=== PATIENT | female | born 1980 | race Caucasian/White ===

== ENCOUNTER 2023-05-13 12:57 | Emergency (ER) | payer MEDICARE, OTHER, SELFPAY ==
[2023-05-13] VITALS (8 sets, daily range): BP systolic 123–171; BP diastolic 81–113; BMI 41.5
[2023-05-13 13:29] LABS: % Basophils 0.3 % (0-2); % Eosinophils 0.7 % (0-6); % Immature Granulocytes 0.5 % (0-0.5); % Lymphocytes 23.9 % (20.5-51.1); % Monocytes 5.4 % (1.7-9.3); % Neutrophils 69.2 % (42.2-75.2); Absolute Eosinophils 0.1 10^3/uL (0-0.7); Absolute Immature Granulocytes 0.1 10^3/uL (0-0.05); Absolute Lymphocytes 2.5 10^3/uL (1.2-3.4); Absolute Monocytes 0.6 10^3/uL (0.1-0.6); Absolute Neutrophils 7.2 10^3/uL (1.4-6.5); Hematocrit 37.5 % (37.0-47.0); Hemoglobin 12.1 g/dL (12.0-16.0); Mean Corp Hgb Conc. 32.3 g/dL (33.0-37.0); Mean Corpuscular Hgb 27.9 pg (27.0-31.0); Mean Corpuscular Volume 86.4 fL (81.0-99.0); Mean Platelet Volume 9.7 fL (7.4-10.4); Nucleated Red Blood Cells % 0 %; Platelet Count 326 10^3/uL (130-400); Red Blood Cell Count 4.34 10^6/uL (4.20-5.40); Red Cell Dist. Width 14.4 % (11.5-14.5); White Blood Cell Count 10.4 10^3/uL (4.8-10.8)
[2023-05-13 13:36] LABS: HCG, Serum Qualitative Screen Negative
[2023-05-13 13:41] LABS: ALT (SGPT) 26 U/L (0-35); AST (SGOT) 52 U/L (14-36); Albumin 3.3 g/dl (3.5-5.0); Alkaline Phosphatase 82 U/L (38-126); Blood Urea Nitrogen 12 mg/dl (7-17); Calcium 9.3 mg/dl (8.4-10.2); Carbon Dioxide 23 mmol/L (22-30); Chloride 104 mmol/L (98-107); Estimated Creatinine Clearance > 125 ml/min; Glucose 138 mg/dl (70-99); Sodium 137 mmol/L (135-145); Total Bilirubin 0.5 mg/dl (0.2-1.3); Total Protein 6.3 g/dl (6.3-8.2); eGFR > 60.00
[2023-05-13 14:03] LABS: Lipase 182 U/L (23-300)
--- NOTE | 2023-05-13 14:16 | ED.GENMED ---
Addendum entered and electronically signed by Beth Barrientos PA-C 05/15/23 07:37:
urine culture prelim pos e coli
i spoke with RN at her [facility] where she is and faxed report to [phone]
Original Note:
History of Present Illness
General
Chief Complaint: Abdominal Pain
Source: patient
Exam Limitations: none
Time Seen by Provider: 05/13/23 13:13
Nursing documentation reviewed up to this point in time: agreed with
Travel History
Have you had any contact with someone who has COVID-19?: No
Do you have any symptoms of coronavirus? Fever > 100 degrees, chills, cough, shortness of breath, sore throat, loss of taste or smell, muscle aches, or headache?: No
History of Present Illness
History of Present Illness:
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
presents to the emergency department from her [facility] ([facility]) for evaluation of abdominal pain. Patient reports onset of symptoms 2 weeks ago and they have been steady and progressive since. Pain primarily located in the left lower
quadrant radiates across the lower abdomen. No clear exacerbating or relieving factors noted. Associated with constipation no diarrhea. No nausea or vomiting. No fevers or chills. No new urinary symptoms. She denies any other complaints.
Review of Systems
Review of Systems
All Other Systems: ROS reviewed and negative except as documented in HPI and ROS
Constitutional: Denies fever or chills
Respiratory: Denies cough or trouble breathing
Cardiac: Denies chest pain or palpitations
ABD/GI: Reports abdominal pain and constipated; Denies nausea, vomiting or diarrhea
: Denies frequency, flank pain or bleeding
Musculoskeletal: Denies neck pain or back pain
Neurological: Denies headache
Phy Exam
Physical Exam
Physical Exam:
General: Awake, alert, oriented x3; chronically ill-appearing; no acute distress
Head: Normocephalic, atraumatic
Eyes: Conjunctiva normal, EOMI
Throat: Airway intact, handling secretions
Neck: Trachea midline, supple without meningismus
Lungs: Clear to auscultation bilaterally, no wheezing, rales, rhonchi
Heart: Tachycardia with regular rhythm, no murmurs, gallops, or rubs
Abd: Soft, non distended, tender to palpation left lower quadrant; PEG tube in place
Neuro: Cranial nerves grossly intact, speech fluid
Extremities: Bilateral lower extremity edema, contractures at the ankles bilaterally worse on the right; distal extremities are warm and well-perfused
Scores
Heart Failure Risk
Heart Failure Risk Score: Not Applicable
Heart Score for Chest Pain Patients
STEMI patient?: Not applicable
Withdrawal Assessment of Alcohol
Withdrawal Assessment Completed?: Not applicable
Course
Orders/Labs/Results
Orders:
Orders
05/13/23 13:13
Test Result ONCE
05/13/23 13:18
Complete Blood Count/With Diff Urgent
Comprehensive Metabolic Panel Urgent
HCG, Serum Qualitative Screen Urgent
Lipase Urgent
05/13/23 13:36
CT Abd/pelvis W Iv Cont Urgent
Comment:
Reason For Exam: LLQ abd pain
Test Result ONCE
05/13/23 14:26
Urinalysis Reflex To Culture Urgent
Date Specimen was Collected: 05/13/23
Time Specimen was Collected: 14:16
Urine Microscopic Reflex Cult Urgent
Urine Culture Urgent
MELLISSA Source: U
Specimen Description:
Date Specimen was Collected: 05/13/23
Time Specimen was Collected: 14:16
05/13/23 16:38
Enema- Treatment ONCE
Type: Milk of Molasses
Abnormal Lab Results
05/13/23 05/13/23
13:18 14:26
MCHC 32.3 L g/dL
(33.0-37.0)
Abs Immat Gran (auto) 0.1 H 10^3/uL
(0-0.05)
Absolute Neuts (auto) 7.2 H 10^3/uL
(1.4-6.5)
Glucose 138 H mg/dl
(70-99)
AST 52 H U/L
(14-36)
Albumin 3.3 L g/dl
(3.5-5.0)
Urine Nitrite (Reflex) Positive A
(Negative)
Leukocyte Esterase Rfl Trace A
(Negative)
Urine Bacteria (Reflex) Many A
(Negative)
05/13/23 13:18
05/13/23 13:18
Vital Signs
Initial and Last Documented VS:
Initial Vital Signs
Pulse Resp
111 18
05/13/23 13:01 05/13/23 13:01
Last Documented Vital Signs
Pulse Resp BP Pulse Ox
103 21 145/87 97
05/13/23 16:15 05/13/23 16:15 05/13/23 16:00 05/13/23 16:15
MDM/Problems Addressed
Differential Diagnosis Includes:
Diverticulitis, constipation, nephrolithiasis, UTI, ovarian cyst
MDM/Problems Addressed:
42-year-old female with extensive medical history presents for lower abdominal pain worse on the left. Tachycardic but otherwise normal vitals. Exam as above. Plan to place an IV check labs including a CBC and a CMP, hCG, urinalysis. Check CT of
the abdomen pelvis. Will monitor closely reassess after the above.
Labs reviewed: CBC unremarkable, CMP shows marginal elevation of AST otherwise unremarkable. hCG negative. Urinalysis was positive for nitrites with bacteria but there are squamous cells suggesting some contamination and there is no pyuria to
suggest UTI�in the absence of urinary symptoms, leukocytosis, fever would hold on antibiotics in favor of following urine culture. CT of the abdomen pelvis returned shows no acute pathology but she does have some signs suggestive of constipation
and based on her clinical history of recent constipation I think this is the likely etiology of her symptoms. She is currently on lactulose has been hesitant to increase dosing due to diarrhea. Will trial an enema here and discharged with
instructions to increase her lactulose dosing. Spoke about return precautions all questions answered
Chronic conditions affecting care:
Functional quadriplegia and chronic constipation
*Radiology
Radiology exam reviewed: radiology read reviewed
*Pulse Oximetry
Patient hypoxic: no
*Critical Care Note
Total Time (30-74mins, 75-104mins- exclusive of procedures): Not Applicable
Data Reviewed
Source: patient, records and [facility] records
ED Attending Note
-
Portions of this chart may have been created with voice recognition software.� Occasional wrong word or��sound alike� substitutions may have occurred due to the inherent limitations of voice recognition software.
Discharge Plan
Departure
Patient with high blood pressure during this ER visit?: Yes
Discharge Problem:
Abdominal pain, Constipation
Instructions: Constipation, Adult (DC), Abdominal Pain
Prescriptions:
No Action
medroxyprogesterone 10 mg Tablet
10 mg PO DAILY
acetaminophen [Tylenol] 325 mg Tablet
650 mg PO Q6HPRN PRN (Reason: mild pain)
polyethylene glycol 3350 [Miralax] 17 gram Powder In Packet
17 g PO DAILY
cetirizine [Zyrtec] 10 mg Tablet
10 mg PO DAILY
levalbuterol HCl [Xopenex] 0.63 mg/3 mL Solution For Nebulization
0.63 mg INHALATION R Q6HPRN PRN (Reason: sob)
dextromethorphan-guaifenesin [Mulu-Tussin DM] 10-100 mg/5 mL Liquid
10 ml PO Q6HPRN PRN (Reason: cough)
ondansetron HCl [Zofran] 4 mg Tablet
4 mg PO Q6HPRN PRN (Reason: nausea)
clonazepam 0.5 mg Tablet
0.5 mg PO BID
sennosides-docusate sodium [Senokot-S] 8.6-50 mg Tablet
2 tab-cap PO BID
gabapentin 400 mg Capsule
400 mg feeding tube Q6H
loperamide 2 mg Tablet
2 mg PO Q6HPRN PRN (Reason: diarrhea)
tramadol 50 mg Tablet
50 mg PO TIDPRN PRN (Reason: moderate pains)
guaifenesin [Mucinex Fast-Max Chest-Congest] 100 mg/5 mL Liquid
200 mg PO Q6HPRN PRN (Reason: cough)
diphenhydramine-zinc acetate 2-0.1 % Cream
1 applic TOPICAL TIDPRN PRN (Reason: itching)
oxycodone-acetaminophen [Percocet] 5-325 mg Tablet
1 tab PO Q8HPRN PRN (Reason: severe pains)
magnesium hydroxide [Milk of Magnesia] 400 mg/5 mL Suspension
2,400 mg PO [id number] PRN (Reason: constipation)
ascorbic acid (vitamin C) [Vitamin C] 500 mg Tablet
500 mg feeding tube DAILY
benzonatate [Tessalon Perles] 100 mg Capsule
100 mg PO TID
oxybutynin chloride 5 mg/5 mL Syrup
2.5 mg feeding tube TID
bisacodyl [Dulcolax (bisacodyl)] 10 mg Suppository
10 mg VT [id number] PRN (Reason: constipation)
bisacodyl [Dulcolax (bisacodyl)] 10 mg Suppository
10 mg VT DAILYPRN PRN (Reason: if no bm aftr mom)
nystatin 100,000 unit/gram Cream
1 applic TOPICAL BID
Fleet Enema 19-7 gram/118 mL Enema
118 ml VT DAILYPRN PRN (Reason: if no bm aftr dulcolax)
Debrox 6.5 % Drops
5 drp OTIC (EAR) BID
folic acid 1 mg Tablet
1 mg feeding tube DAILY
metoprolol succinate [Toprol XL] 25 mg Tablet Extended Release 24 Hr
12.5 mg PO DAILY
nystatin 100,000 unit/gram Powder
1 applic TOPICAL TID
fluticasone propionate [Flonase] 50 mcg/actuation [place],Suspension
1 spray INTRANASAL DAILY
lamotrigine 100 mg Tablet
100 mg feeding tube BID
risperidone [Risperdal] 0.5 mg Tablet
0.5 mg feeding tube BID
simethicone [Gas-X] 80 mg Tablet,Chewable
80 mg feeding tube Q6HPRN PRN (Reason: gas pain)
hydroxyzine pamoate [Vistaril] 25 mg Capsule
25 mg PO HS
topiramate 50 mg Tablet
150 mg feeding tube BID
duloxetine [Cymbalta] 60 mg Capsule,Delayed Release(Dr/Ec)
90 mg PO DAILY
lactulose 10 gram/15 mL Solution
20 g feeding tube DAILY
drospirenone-ethinyl estradiol 3-0.02 mg Tablet
1 tab feeding tube DAILY
Refresh Optive 0.5-0.9 % Drops
2 drp BOTH EYES BID
diclofenac sodium [Voltaren] 1 % Gel
0 g TOPICAL [id number] PRN (Reason: b/l knee, rt shoulder)
omeprazole 20 mg Tablet,Delayed Release (Dr/Ec)
20 mg PO DAILY
oxycodone [OxyContin] 10 mg Tablet,Oral Only,Ext.Rel.12 Hr
10 mg PO BID
Referrals:
Anthony Wilburn DO [Family Provider] - Call in 1-3 days for appt
Lisa Roe MD [Active] - As needed (GI doctor)
Activity Restrictions/Additional Instructions:
Thank you for visiting the Emergency Department at [facility].
1. Please schedule a follow up appointment as directed. Call first thing tomorrow morning to make an appointment.
2. If indicated, please take your medications as instructed and indicated on discharge paperwork.
3. If any of your symptoms do not improve, or persist, or become more severe within 6-12 hours, please return to the emergency department for further care.
4. Please return to the emergency department if you develop a headache, neck pain/stiffness, fever greater than 100.4F, chest pain, shortness of breath, persistent nausea, vomiting, slurred speech, difficulty walking, numbness/tingling, weakness,
signs of infection or any other symptoms that are worrisome to you.
Please call [phone] if you have any questions.
Interventions
Interventions:
*Risk Screen - Suicide Last Done: 05/13/23 13:01
*General Assessment Last Done: 05/13/23 13:01
*Neglect/Abuse Screening Last Done: 05/13/23 13:01
ED- Fall Risk Assessment Last Done: 05/13/23 13:12
*ED COVID-19 Vaccine History Last Done: 05/13/23 13:01
LW-Nlyolx-Zbmfgnewui Assessment Last Done: 05/13/23 13:12
[2023-05-13 14:45] LABS: Urine Albumin Trace (Neg - Trace); Urine Bilirubin Negative (Negative); Urine Character Clear (Clear); Urine Color Yellow; Urine Glucose Negative (Negative); Urine Ketone Negative (Negative); Urine Leukocyte Trace (Negative); Urine Nitrite Positive (Negative); Urine Occult Blood Negative (Negative); Urine Urobilinogen Negative (Neg - 1+)
[2023-05-13 14:59] LABS: Urine Bacteria Many (Negative); Urine Red Blood Cell 0-2 /HPF (0-2); Urine Squamous Cell 0-2 /LPF (Few)
[2023-05-13] MEDS: ULTRAM 50 MG PO (18:33)
== END 2023-05-13 21:04 | disposition home or self-care (01) ==
LOC: EMR 12:57
PROVIDERS: EMERGENCY PHYSICIAN Emergency Medicine; FAMILY PHYSICIAN Student in an Organized Health Care Education/Training Program
DX: R10.9 Unspecified abdominal pain (principal); K59.00 Constipation, unspecified; Q79.60 Ehlers-Danlos syndrome, unspecified; J96.10 Chronic respiratory failure, unspecified whether with hypoxia or hypercapnia; Z99.81 Dependence on supplemental oxygen; M79.7 Fibromyalgia; R53.2 Functional quadriplegia
CPT/HCPCS: 99284; 74177; 80053; 81003; 81015; 83690; 84703; 85025; 87086; 87088; 87186; Q9967

== ENCOUNTER 2023-05-29 13:52 | Emergency (ER) | payer MEDICARE, OTHER, SELFPAY ==
[2023-05-29] VITALS (8 sets, daily range): BP systolic 115–144; BP diastolic 73–99; BMI 34.1
--- NOTE | 2023-05-29 14:26 | ED.GENMED ---
History of Present Illness
General
Chief Complaint: Abdominal Symptoms
Source: patient
Time Seen by Provider: 05/29/23 13:58
Travel History
Have you had any contact with someone who has COVID-19?: No
Do you have any symptoms of coronavirus? Fever > 100 degrees, chills, cough, shortness of breath, sore throat, loss of taste or smell, muscle aches, or headache?: No
History of Present Illness
History of Present Illness:
42-year-old female presents via EMS from [facility] with complaints of abdominal pain started yesterday worsened today. No vomiting. No fever. The pain is upper mid into the left slightly. Pain does not radiate to the back. She has
a GJ tube. She has a history of quadriplegia. No chest pain or cough. No other complaints at this time.
Phy Exam
Physical Exam
Physical Exam:
General: Well-appearing female no acute respiratory distress
HEENT: Normocephalic atraumatic
Heart: Regular rate and rhythm no murmur
Lungs: Clear to auscultation bilaterally no wheezing
Abdomen: JG tube present. Tender to the upper abdomen mild guarding no rebound tenderness normal bowel sounds
Extremities: No cyanosis skin: Warm no rash
Course
Orders/Labs/Results
Orders:
Orders
05/29/23 13:55
Electrocardiogram (*1) Urgent
Reason for Study: Abdominal Pain
EKG- Treatment ONCE
Test Result ONCE
05/29/23 14:07
Comprehensive Metabolic Panel Urgent
HCG, Serum Qualitative Screen Urgent
Lipase Urgent
05/29/23 14:14
HYDROmorphone [Dilaudid] 0.5 mg IV NOW STA
05/29/23 14:15
CT Abd/pelvis W Iv Cont Urgent
Comment:
Reason For Exam: abdominal pain
05/29/23 14:55
Complete Blood Count/With Diff Urgent
Comment: PREVIOUS CLOTTED
Abnormal Lab Results
05/29/23 05/29/23
14:07 14:55
WBC 12.2 H 10^3/uL
(4.8-10.8)
RBC 4.08 L 10^6/uL
(4.20-5.40)
Hgb 11.3 L g/dL
(12.0-16.0)
Hct 34.7 L %
(37.0-47.0)
MCHC 32.6 L g/dL
(33.0-37.0)
Abs Immat Gran (auto) 0.1 H 10^3/uL
(0-0.05)
Absolute Neuts (auto) 8.3 H 10^3/uL
(1.4-6.5)
Absolute Monos (auto) 0.9 H 10^3/uL
(0.1-0.6)
Glucose 117 H mg/dl
(70-99)
AST 43 H U/L
(14-36)
05/29/23 14:55
05/29/23 14:07
Vital Signs
Initial and Last Documented VS:
Initial Vital Signs
Temp Pulse Resp BP Pulse Ox
98.8 F 101 9 115/97 97
05/29/23 13:59 05/29/23 13:59 05/29/23 13:59 05/29/23 13:59 05/29/23 13:59
Last Documented Vital Signs
Temp Pulse Resp BP Pulse Ox
98.8 F 101 9 115/97 97
05/29/23 13:59 05/29/23 13:59 05/29/23 13:59 05/29/23 13:59 05/29/23 13:59
MDM/Problems Addressed
Differential Diagnosis Includes:
Abdominal pain. She was here last month for abdominal pain related to constipation. She states this pain is different. Pain is severe requesting pain medicine. Will treat with pain medicine and repeat CT scan. Consider pancreatitis versus
colitis.
*Critical Care Note
Total Time (30-74mins, 75-104mins- exclusive of procedures): Not Applicable
Update Note
Update Note:
CT shows no obvious acute finding. Potential gastritis. Recommended continued omeprazole. No indication for admission at this time. Will discharge with GI follow-up
ED Attending Note
-
Portions of this chart may have been created with voice recognition software.� Occasional wrong word or��sound alike� substitutions may have occurred due to the inherent limitations of voice recognition software.
Discharge Plan
Departure
Patient Disposition: Home (Routine Discharge)
Date of Disposition: 05/29/23
Time of Disposition: 17:36
Patient with high blood pressure during this ER visit?: No
Discharge Problem:
Abdominal pain
Instructions: Abdominal Pain
Prescriptions:
No Action
medroxyprogesterone 10 mg Tablet
10 mg PO DAILY
acetaminophen [Tylenol] 325 mg Tablet
650 mg PO Q6HPRN PRN (Reason: mild pain)
polyethylene glycol 3350 [Miralax] 17 gram Powder In Packet
17 g PO DAILY
cetirizine [Zyrtec] 10 mg Tablet
10 mg PO DAILY
levalbuterol HCl [Xopenex] 0.63 mg/3 mL Solution For Nebulization
0.63 mg INHALATION R Q6HPRN PRN (Reason: sob)
dextromethorphan-guaifenesin [Mulu-Tussin DM] 10-100 mg/5 mL Liquid
10 ml PO Q6HPRN PRN (Reason: cough)
ondansetron HCl [Zofran] 4 mg Tablet
4 mg PO Q6HPRN PRN (Reason: nausea)
clonazepam 0.5 mg Tablet
0.5 mg PO BID
sennosides-docusate sodium [Senokot-S] 8.6-50 mg Tablet
2 tab-cap PO BID
gabapentin 400 mg Capsule
400 mg feeding tube Q6H
loperamide 2 mg Tablet
2 mg PO Q6HPRN PRN (Reason: diarrhea)
tramadol 50 mg Tablet
50 mg PO TIDPRN PRN (Reason: moderate pains)
guaifenesin [Mucinex Fast-Max Chest-Congest] 100 mg/5 mL Liquid
200 mg PO Q6HPRN PRN (Reason: cough)
diphenhydramine-zinc acetate 2-0.1 % Cream
1 applic TOPICAL TIDPRN PRN (Reason: itching)
oxycodone-acetaminophen [Percocet] 5-325 mg Tablet
1 tab PO Q8HPRN PRN (Reason: severe pains)
magnesium hydroxide [Milk of Magnesia] 400 mg/5 mL Suspension
2,400 mg PO [id number] PRN (Reason: constipation)
ascorbic acid (vitamin C) [Vitamin C] 500 mg Tablet
500 mg feeding tube DAILY
benzonatate [Tessalon Perles] 100 mg Capsule
100 mg PO TID
oxybutynin chloride 5 mg/5 mL Syrup
2.5 mg feeding tube TID
bisacodyl [Dulcolax (bisacodyl)] 10 mg Suppository
10 mg UT [id number] PRN (Reason: constipation)
bisacodyl [Dulcolax (bisacodyl)] 10 mg Suppository
10 mg UT DAILYPRN PRN (Reason: if no bm aftr mom)
nystatin 100,000 unit/gram Cream
1 applic TOPICAL BID
Fleet Enema 19-7 gram/118 mL Enema
118 ml UT DAILYPRN PRN (Reason: if no bm aftr dulcolax)
Debrox 6.5 % Drops
5 drp OTIC (EAR) BID
folic acid 1 mg Tablet
1 mg feeding tube DAILY
metoprolol succinate [Toprol XL] 25 mg Tablet Extended Release 24 Hr
12.5 mg PO DAILY
nystatin 100,000 unit/gram Powder
1 applic TOPICAL TID
fluticasone propionate [Flonase] 50 mcg/actuation [place],Suspension
1 spray INTRANASAL DAILY
lamotrigine 100 mg Tablet
100 mg feeding tube BID
risperidone [Risperdal] 0.5 mg Tablet
0.5 mg feeding tube BID
simethicone [Gas-X] 80 mg Tablet,Chewable
80 mg feeding tube Q6HPRN PRN (Reason: gas pain)
hydroxyzine pamoate [Vistaril] 25 mg Capsule
25 mg PO HS
topiramate 50 mg Tablet
150 mg feeding tube BID
duloxetine [Cymbalta] 60 mg Capsule,Delayed Release(Dr/Ec)
90 mg PO DAILY
lactulose 10 gram/15 mL Solution
20 g feeding tube DAILY
drospirenone-ethinyl estradiol 3-0.02 mg Tablet
1 tab feeding tube DAILY
Refresh Optive 0.5-0.9 % Drops
2 drp BOTH EYES BID
diclofenac sodium [Voltaren] 1 % Gel
0 g TOPICAL [id number] PRN (Reason: b/l knee, rt shoulder)
omeprazole 20 mg Tablet,Delayed Release (Dr/Ec)
20 mg PO DAILY
oxycodone [OxyContin] 10 mg Tablet,Oral Only,Ext.Rel.12 Hr
10 mg PO BID
Referrals:
Anthony Wilburn DO [Family Provider] -
Shantanu Pineda MD [Active] -
Activity Restrictions/Additional Instructions:
Continue current medication. Return here for worsening symptoms otherwise follow-up with GI
Interventions
Interventions:
*General Assessment Last Done: 05/29/23 14:00
ED- Fall Risk Assessment Last Done: 05/29/23 14:02
*ED COVID-19 Vaccine History Last Done: 05/29/23 14:00
QR-Rvizdy-Gzpycsempf Assessment Last Done: 05/29/23 14:02
[2023-05-29 14:30] LABS: ALT (SGPT) 19 U/L (0-35); AST (SGOT) 43 U/L (14-36); Albumin 3.7 g/dl (3.5-5.0); Alkaline Phosphatase 89 U/L (38-126); Blood Urea Nitrogen 15 mg/dl (7-17); Calcium 9.3 mg/dl (8.4-10.2); Carbon Dioxide 23 mmol/L (22-30); Chloride 106 mmol/L (98-107); Estimated Creatinine Clearance > 125 ml/min; Glucose 117 mg/dl (70-99); HCG, Serum Qualitative Screen Negative; Potassium 4.2 mmol/L (3.5-5.1); Sodium 136 mmol/L (135-145); Total Bilirubin 0.4 mg/dl (0.2-1.3); Total Protein 6.9 g/dl (6.3-8.2); eGFR > 60.00
[2023-05-29 14:41] LABS: Lipase 165 U/L (23-300)
[2023-05-29] MEDS: DILAUDID 0.5 MG IV (14:55)
[2023-05-29 15:06] LABS: % Basophils 0.3 % (0-2); % Eosinophils 1.4 % (0-6); % Immature Granulocytes 0.5 % (0-0.5); % Lymphocytes 23.1 % (20.5-51.1); % Neutrophils 67.7 % (42.2-75.2); Absolute Eosinophils 0.2 10^3/uL (0-0.7); Absolute Immature Granulocytes 0.1 10^3/uL (0-0.05); Absolute Lymphocytes 2.8 10^3/uL (1.2-3.4); Absolute Monocytes 0.9 10^3/uL (0.1-0.6); Absolute Neutrophils 8.3 10^3/uL (1.4-6.5); Hematocrit 34.7 % (37.0-47.0); Hemoglobin 11.3 g/dL (12.0-16.0); Mean Corp Hgb Conc. 32.6 g/dL (33.0-37.0); Mean Corpuscular Hgb 27.7 pg (27.0-31.0); Mean Platelet Volume 9.8 fL (7.4-10.4); Nucleated Red Blood Cells % 0 %; Platelet Count 325 10^3/uL (130-400); Red Blood Cell Count 4.08 10^6/uL (4.20-5.40); Red Cell Dist. Width 14.4 % (11.5-14.5); White Blood Cell Count 12.2 10^3/uL (4.8-10.8)
[2023-05-29] MEDS: PERCOCET 5/325 1 TABLET PO (20:07)
== END 2023-05-29 21:50 | disposition home or self-care (01) ==
LOC: EMR 13:52
PROVIDERS: EMERGENCY PHYSICIAN Emergency Medicine; FAMILY PHYSICIAN Student in an Organized Health Care Education/Training Program
DX: R10.9 Unspecified abdominal pain (principal); G82.50 Quadriplegia, unspecified
CPT/HCPCS: 99285; 96374; 74177; 80053; 83690; 84703; 85025; 93005; Q9967

== ENCOUNTER 2023-09-25 21:52 | Emergency (ER) | payer MEDICARE, OTHER, SELFPAY ==
[2023-09-25 21:54] VITALS: BMI 41.5
[2023-09-25 21:55] VITALS: BP 148/89
[2023-09-25 22:42] LABS: % Basophils 0.4 % (0-2); % Eosinophils 1.6 % (0-6); % Immature Granulocytes 0.6 % (0-0.5); % Monocytes 7.4 % (1.7-9.3); Absolute Basophils 0.1 10^3/uL (0-0.2); Absolute Eosinophils 0.2 10^3/uL (0-0.7); Absolute Immature Granulocytes 0.1 10^3/uL (0-0.05); Absolute Lymphocytes 2.9 10^3/uL (1.2-3.4); Absolute Monocytes 0.9 10^3/uL (0.1-0.6); Absolute Neutrophils 8.1 10^3/uL (1.4-6.5); Hematocrit 32.1 % (37.0-47.0); Hemoglobin 10.4 g/dL (12.0-16.0); Mean Corp Hgb Conc. 32.4 g/dL (33.0-37.0); Mean Corpuscular Hgb 26.9 pg (27.0-31.0); Mean Corpuscular Volume 83.2 fL (81.0-99.0); Mean Platelet Volume 9.9 fL (7.4-10.4); Nucleated Red Blood Cells % 0 %; Platelet Count 332 10^3/uL (130-400); Red Blood Cell Count 3.86 10^6/uL (4.20-5.40); Red Cell Dist. Width 16.3 % (11.5-14.5); White Blood Cell Count 12.2 10^3/uL (4.8-10.8)
--- NOTE | 2023-09-25 22:52 | ED.GENMED ---
History of Present Illness
General
Chief Complaint: Abdominal Pain
Source: patient
Exam Limitations: none
Time Seen by Provider: 09/25/23 22:32
History of Present Illness
History of Present Illness:
This is a 42 year old female that is brought in by ambulance with c/o abd pain. states that she started with left sided abd pain and pain around her Peg tube. States that when she would take a deep breath this would increase her pain. States that
this started about 2 days ago. States that she has had chest pain, Increased SOB, and a headache. States that she recently had a UTI and does not think it is gone as she still has burning. Denies any fever, chills, nausea, vomiting, diarrhea,
dizziness.
Past History
Past History
ED Past Medical History: Asthma (Wears 3 liters continuesly), Fibromyalgia, GERD, HTN, Seizures and Other (Neuropathy, Colitis, Constipation, gastroenteritis, UTI, Interstitial cystitis, Bethany-Danlos Syndrome, Arthritis, Intercranial Hypertension, )
ED Past Surgical History: Orthopedic (Left knee surgery, Achilles tendon release, contractures of feet with surgery) and Other (Ped Tube, All teeth extracted, cyst removed from back)
Social History
Tobacco: Non-smoker
Alcohol: None
Personal: Single
[facility]
Review of Systems
Review of Systems
All Other Systems: ROS reviewed and negative except as documented in HPI and ROS
Constitutional: Reports no symptoms; Denies fever or chills
EENT: Reports no symptoms
Respiratory: Reports trouble breathing; Denies cough
Cardiac: Reports chest pain
ABD/GI: Reports abdominal pain; Denies nausea, vomiting or diarrhea
: Reports dysuria; Denies frequency or urgency
Musculoskeletal: Reports no symptoms
Skin: Reports no symptoms
Neurological: Reports headache; Denies dizzy
Psychiatric: Reports no symptoms
Phy Exam
General Physical Exam
General Presentation: no apparent distress
General age: appears stated age
General Skin: warm and dry
General Habitus: debilitated and obese
General Mental: alert
General Hydration: dry mucous membranes
ENT Exam
ENT Exam: TM's normal, pharynx normal and neck supple
Eye Exam
Eye Exam: EOMI
Cardiovascular Exam
Cardiovascular Exam: regular rate/rhythm, no edema and normal peripheral pulses
Pulmonary Exam
Pulmonary Exam: lungs clear, no respiratory distress, no rales, chest non tender, no crackles, no rhonchi, no wheezing and no cough
Gastrointestinal Exam
Gastrointestinal Exam: normal bowel sounds, soft, no organomegaly, no pulsatile mass, non distended and tender (Left sided and upper abd tenderness with palpation)
Musculoskeletal Exam
Musculoskeletal Exam: no edema and other (Both feet in Boats)
Skin Exam
Skin Exam: normal color, warm/dry, no rash and no petechia
Psychiatric Exam
Psychiatric Exam: normal mood/affect
Course
Orders/Labs/Results
Orders:
Orders
09/25/23 22:34
CBC/With Diff [Complete Blood Count/With Diff] Urgent
CMP [Comprehensive Metabolic Panel] Urgent
HCG, Serum Qualitative Screen Urgent
Lipase Urgent
09/25/23 22:50
0.9% Sodium Chloride 1000 ml [Nss] 1,000 ml IV BOLUS
09/25/23 22:51
Add On- LAB Urgent
Tests Added?: HCG
09/25/23 23:03
Electrocardiogram (*1) Urgent
Reason for Study: Abdominal Pain
EKG- Treatment ONCE
09/25/23 23:47
Urinalysis Reflex To Culture Urgent
Date Specimen was Collected: 09/25/23
Time Specimen was Collected: 23:44
Urine Microscopic Reflex Cult Urgent
Urine Culture Urgent
MELLISSA Source: U
Specimen Description:
Date Specimen was Collected: 09/25/23
Time Specimen was Collected: 23:44
09/26/23 00:04
CT Abd/pelvis W Iv Cont Urgent
Reason For Exam: Left sided abd pain and upper abd pain
09/26/23 01:09
Pantoprazole [Protonix IV] 40 mg IV NOW STA
Sucralfate Suspension [Carafate Suspension] 1 gm PO NOW STA
Abnormal Lab Results
09/25/23 09/25/23
22:34 23:47
WBC 12.2 H 10^3/uL
(4.8-10.8)
RBC 3.86 L 10^6/uL
(4.20-5.40)
Hgb 10.4 L g/dL
(12.0-16.0)
Hct 32.1 L %
(37.0-47.0)
MCH 26.9 L pg
(27.0-31.0)
MCHC 32.4 L g/dL
(33.0-37.0)
RDW 16.3 H %
(11.5-14.5)
Abs Immat Gran (auto) 0.1 H 10^3/uL
(0-0.05)
Absolute Neuts (auto) 8.1 H 10^3/uL
(1.4-6.5)
Absolute Monos (auto) 0.9 H 10^3/uL
(0.1-0.6)
Immature Gran % 0.6 H %
(0-0.5)
Glucose 130 H mg/dl
(70-99)
AST 64 H U/L
(14-36)
Urine Nitrite (Reflex) Positive A
(Negative)
Urine Bilirubin 1+ A
(Negative)
Urine Urobilinogen 2+ A
(Neg - 1+)
Leukocyte Esterase Rfl Trace A
(Negative)
Urine Bacteria (Reflex) Many A
(Negative)
09/25/23 22:34
09/25/23 22:34
WBC Slightly elevated but consistent with prior labs, H/H slightly low, Anemia, Lipase normal at 162, Glucose nonfasting. AST mildly elevated (fatty liver) Urine questionable for infection, would wait for culture to treat.
Vital Signs
Initial and Last Documented VS:
Initial Vital Signs
Temp Pulse Resp BP Pulse Ox
99.6 F 99 19 148/89 97
09/25/23 21:55 09/25/23 21:55 09/25/23 21:55 09/25/23 21:55 09/25/23 21:55
Last Documented Vital Signs
Temp Pulse Resp BP Pulse Ox
99.6 F 98 20 136/82 100
09/25/23 21:55 09/26/23 01:00 09/26/23 01:00 09/26/23 01:00 09/26/23 01:00
MDM/Problems Addressed
Differential Diagnosis Includes:
Ileus, Bowel obstruction
MDM/Problems Addressed:
This is a 42 year old female that comes in with c/o abd pain. States that she was told that her x-ray was abnormal that was done today. States that she started 2 days ago with pain.
Will get labs and CT abd/pelvis.
Back into see patient. Explained that her blood work shows a slight elevated of her WBC's and her CT is negative for any ileus or bowel obstruction. Explained that this may be a gastritis. Will increase patient Protonix to BID and add Carafate. Will
discharge patient home.
Chronic conditions affecting care:
Colitis, Gastroenteritis, constipation. Peg tube
Acute Exacerbation and/or Progression of Chronic Illness:
Colitis, Ileus
*Radiology
Radiology exam reviewed: radiology read reviewed (CT night hawk- J-tube seen. No evidence of bowel obstruction. Noninflamed appendix. Left renal calculus. No vidence of obstructing ureteral calculus. NO evidence of peripancreatic stranding, fluid
collection, or edema. Please note that acute pancreatitis cannot be excluded on the basis of CT, and) and all reviewed NAD by ED Provider (CT cont-correlation with the clinical exam and lipase are recommended. Additional findings: Post
Cholecystectomy. fatty liver, dependent atelectasis. DJD, old L1 and L2 compression fractures with mild height loss, similar to 05/29/2023. Elevated right hemidiaphragm. 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
*Pulse Oximetry
Patient hypoxic: no
*Ramp Flight Attendant Interpretation
Rate: normal
Heart Rate: 93
Rhythm: sinus
*Critical Care Note
Total Time (30-74mins, 75-104mins- exclusive of procedures): Not Applicable
ED Attending Note
-
Portions of this chart may have been created with voice recognition software.� Occasional wrong word or��sound alike� substitutions may have occurred due to the inherent limitations of voice recognition software.
Discharge Plan
Departure
Patient Disposition: Retirement/SNF
Date of Disposition: 09/26/23
Time of Disposition: 01:45
Patient with high blood pressure during this ER visit?: Yes
Condition: Good
Covid-19: Not Applicable
Discharge Problem:
Abdominal pain, Gastritis
Instructions: Gastritis (DC), Abdominal Pain, BLOOD PRESSURE
Prescriptions:
New
pantoprazole [Protonix] 40 mg tablet,delayed release (DR/EC)
40 mg PO DAILY Qty: 30 0RF
sucralfate [Carafate] 1 gram tablet
1 g PO ACHS Qty: 40 0RF
No Action
medroxyprogesterone 10 mg Tablet
10 mg PO DAILY
acetaminophen [Tylenol] 325 mg Tablet
650 mg PO Q6HPRN PRN (Reason: mild pain)
polyethylene glycol 3350 [Miralax] 17 gram Powder In Packet
17 g PO DAILY
levalbuterol HCl [Xopenex] 0.63 mg/3 mL Solution For Nebulization
0.63 mg INHALATION R Q6HPRN PRN (Reason: sob)
dextromethorphan-guaifenesin [Mulu-Tussin DM] 10-100 mg/5 mL Liquid
10 ml PO Q6HPRN PRN (Reason: cough)
ondansetron HCl [Zofran] 4 mg Tablet
4 mg PO Q6HPRN PRN (Reason: nausea)
clonazepam 0.5 mg Tablet
0.5 mg PO BID
sennosides-docusate sodium [Senokot-S] 8.6-50 mg Tablet
2 tab-cap PO BID
gabapentin 400 mg Capsule
600 mg feeding tube Q6H
loperamide 2 mg Tablet
2 mg PO Q6HPRN PRN (Reason: diarrhea)
guaifenesin [Mucinex Fast-Max Chest-Congest] 100 mg/5 mL Liquid
200 mg PO Q6HPRN PRN (Reason: cough)
diphenhydramine-zinc acetate 2-0.1 % Cream
1 applic TOPICAL TIDPRN PRN (Reason: itching)
magnesium hydroxide [Milk of Magnesia] 400 mg/5 mL Suspension
2,400 mg PO [id number] PRN (Reason: constipation)
benzonatate [Tessalon Perles] 100 mg Capsule
100 mg PO TID
oxybutynin chloride 5 mg/5 mL Syrup
2.5 mg feeding tube TID
bisacodyl [Dulcolax (bisacodyl)] 10 mg Suppository
10 mg IN [id number] PRN (Reason: constipation)
bisacodyl [Dulcolax (bisacodyl)] 10 mg Suppository
10 mg IN DAILYPRN PRN (Reason: if no bm aftr mom)
nystatin 100,000 unit/gram Cream
1 applic TOPICAL BID
Fleet Enema 19-7 gram/118 mL Enema
118 ml IN DAILYPRN PRN (Reason: if no bm aftr dulcolax)
folic acid 1 mg Tablet
1 mg feeding tube DAILY
nystatin 100,000 unit/gram Powder
1 applic TOPICAL TID
fluticasone propionate [Flonase] 50 mcg/actuation [place],Suspension
1 spray INTRANASAL DAILY
lamotrigine 100 mg Tablet
100 mg feeding tube BID
risperidone [Risperdal] 0.5 mg Tablet
0.5 mg feeding tube BID
simethicone [Gas-X] 80 mg Tablet,Chewable
80 mg feeding tube Q6HPRN PRN (Reason: gas pain)
topiramate 50 mg Tablet
150 mg feeding tube BID
duloxetine [Cymbalta] 60 mg Capsule,Delayed Release(Dr/Ec)
90 mg PO DAILY
lactulose 10 gram/15 mL Solution
20 g feeding tube DAILY
drospirenone-ethinyl estradiol 3-0.02 mg Tablet
1 tab feeding tube DAILY
Refresh Optive 0.5-0.9 % Drops
2 drp BOTH EYES BID
diclofenac sodium [Voltaren] 1 % Gel
0 g TOPICAL [id number] PRN (Reason: b/l knee, rt shoulder)
omeprazole 20 mg Tablet,Delayed Release (Dr/Ec)
20 mg PO DAILY
trazodone 50 mg Tablet
50 mg PO HS
fexofenadine 180 mg Tablet
180 mg PO DAILY
Rx Instructions:
at bedtime
nortriptyline 50 mg Capsule
50 mg feeding tube HS
hydromorphone 1 mg/mL Liquid
2 mg PO Q6H PRN (Reason: moderate pain )
hydromorphone 1 mg/mL Liquid
4 mg PO Q8H PRN (Reason: SEVERE PAIN)
metoprolol tartrate 25 mg Tablet
12.5 mg PO BID
Referrals:
Anthony Wilburn DO [Family Provider] - Follow up in 2-3 days
Activity Restrictions/Additional Instructions:
As discussed, your blood work shows your CBC is consistent with prior labs. Your Lipase is normal and your CT is negative for any ileus or bowel obstruction.No renal calculus. This may be a gastritis. Will have patient use Protonix BID and add
Carafate. Patient to follow up with the family doctor. Patient to return with fever, vomiting, or any other concerns please return to the emergency room.
Interventions
Interventions:
*Risk Screen - Suicide Last Done: 09/25/23 21:55
*General Assessment Last Done: 09/25/23 21:55
*Neglect/Abuse Screening Last Done: 09/25/23 21:55
ED- Fall Risk Assessment Last Done: 09/25/23 22:45
*ED COVID-19 Vaccine History Last Done: 09/25/23 21:55
ZU-Yskikz-Lfijrusfli Assessment Last Done: 09/25/23 22:45
Discharge Date and Time
Print Language: UPPER SORBIAN
[2023-09-25 22:57] LABS: ALT (SGPT) 29 U/L (0-35); AST (SGOT) 64 U/L (14-36); Albumin 3.8 g/dl (3.5-5.0); Alkaline Phosphatase 102 U/L (38-126); Blood Urea Nitrogen 13 mg/dl (7-17); Calcium 9.3 mg/dl (8.4-10.2); Carbon Dioxide 24 mmol/L (22-30); Chloride 105 mmol/L (98-107); Estimated Creatinine Clearance > 125 ml/min; Glucose 130 mg/dl (70-99); Lipase 162 U/L (23-300); Potassium 3.9 mmol/L (3.5-5.1); Sodium 136 mmol/L (135-145); Total Bilirubin 0.4 mg/dl (0.2-1.3); Total Protein 6.9 g/dl (6.3-8.2); eGFR > 60.00
[2023-09-25 23:00] VITALS: BP 128/75
[2023-09-25 23:07] LABS: HCG, Serum Qualitative Screen Negative
[2023-09-25] MEDS: NSS 1000 IV (23:43)
[2023-09-25 23:55] LABS: Urine Albumin Negative (Neg - Trace); Urine Bilirubin 1+ (Negative); Urine Character Clear (Clear); Urine Color Yellow; Urine Glucose Negative (Negative); Urine Ketone Negative (Negative); Urine Leukocyte Trace (Negative); Urine Nitrite Positive (Negative); Urine Occult Blood Negative (Negative); Urine Specific Gravity 1.015 (<1.030); Urine Urobilinogen 2+ (Neg - 1+); Urine pH 6.5 (5.0-9.0)
[2023-09-26] VITALS: BP 126/70
[2023-09-26] LABS: Urine Bacteria Many (Negative); Urine Red Blood Cell 0-2 /HPF (0-2)
[2023-09-26 01:00] VITALS: BP 136/82
[2023-09-26] MEDS: PROTONIX IV 40 MG IV (01:36)
[2023-09-26] MEDS: CARAFATE SUSPENSION 1 GM PO (01:36)
[2023-09-26 03:00] VITALS: BP 128/80
== END 2023-09-26 03:30 ==
LOC: EMR 21:52
PROVIDERS: Clinical Nurse Specialist Family Health; EMERGENCY PHYSICIAN Emergency Medicine; FAMILY PHYSICIAN Student in an Organized Health Care Education/Training Program
DX: R10.9 Unspecified abdominal pain (principal); K29.70 Gastritis, unspecified, without bleeding; J45.909 Unspecified asthma, uncomplicated; M79.7 Fibromyalgia; K21.9 Gastro-esophageal reflux disease without esophagitis; I10 Essential (primary) hypertension; G40.909 Epilepsy, unspecified, not intractable, without status epilepticus; Q79.60 Ehlers-Danlos syndrome, unspecified; M19.90 Unspecified osteoarthritis, unspecified site; Z87.440 Personal history of urinary (tract) infections
CPT/HCPCS: 99284; 96374; 74177; 80053; 81003; 81015; 83690; 84703; 85025; 87086; 93005; Q9967

== ENCOUNTER 2023-09-26 15:19 | Emergency (ER) | payer MEDICARE, OTHER, SELFPAY ==
[2023-09-26 15:23] VITALS: BP 114/61
--- NOTE | 2023-09-26 15:58 | ED.GENMED ---
History of Present Illness
General
Chief Complaint: Abdominal Symptoms
Time Seen by Provider: 09/26/23 15:34
History of Present Illness
History of Present Illness:
42-year-old female with multiple comorbidities including asthma with oxygen dependence, quadriplegia, GERD, fibromyalgia, seizures presenting to the emergency department for reassessment of upper abdominal pain. Reports that symptoms have been
ongoing for several days, seen in the emergency department yesterday with extensive workup. Patient takes Dilaudid at baseline at her nursing facility for chronic pain. Denies any vomiting. Does note constipation with last bowel movement 2 days
ago. Denies chest pain or difficulty breathing. Reports chronic cough without any acute changes. Denies fever. Denies additional medical complaints
Past History
Past History
ED Past Medical History: Asthma (Wears 3 liters continuesly), Fibromyalgia, GERD, HTN, Seizures and Other (Neuropathy, Colitis, Constipation, gastroenteritis, UTI, Interstitial cystitis, Bethany-Danlos Syndrome, Arthritis, Intercranial Hypertension, )
ED Past Surgical History: Orthopedic (Left knee surgery, Achilles tendon release, contractures of feet with surgery) and Other (Ped Tube, All teeth extracted, cyst removed from back)
Social History
Tobacco: Non-smoker
Alcohol: None
Personal: Single
[facility]
Phy Exam
Physical Exam
Physical Exam:
General: no clinical signs of dehydration, nontoxic and in no acute distress. Morbidly obese
HEENT: protecting airway
Neck: appears supple
CV: Normal heart rate, regular rhythm, no evidence of cyanosis
Resp: No accessory muscle use, no increased work of breathing, lungs clear to auscultation bilaterally. Stable on home O2.
Abd: Soft and non-distended, GJ tube in place without surrounding erythema. Mild tenderness surrounding area, without rebound or guarding
Extremities: No deformities, no swelling
Neuro: alert, quadriplegia
: deferred
Rectal: deferred
Psych: Normal affect
Skin: Intact
Course
Orders/Labs/Results
Orders:
Orders
09/26/23 16:06
Acetaminophen [Tylenol Oral Solution] 650 mg .ROUTE .STK-MED ONE
09/26/23 16:09
Acetaminophen [Tylenol Oral Solution] 650 mg PO NOW STA
09/26/23 17:04
Magnesium Citrate [Citroma] 150 ml PO ONCE ONE
Vital Signs
Initial and Last Documented VS:
Initial Vital Signs
Temp Pulse Resp Pulse Ox
98.9 F 82 20 96
09/26/23 15:28 09/26/23 15:28 09/26/23 15:28 09/26/23 15:28
Last Documented Vital Signs
Temp Pulse Resp Pulse Ox
98.9 F 82 20 96
09/26/23 15:28 09/26/23 15:28 09/26/23 15:28 09/26/23 15:28
MDM/Problems Addressed
MDM/Problems Addressed:
42-year-old female with multiple comorbidities presenting for persistent abdominal pain. Vital signs within normal limits.
On exam, patient is resting comfortably, no acute distress or discomfort. She is requesting a movie to be put on the television and is seeing her chronic pain medications. She is nontoxic. Patient's hospital visit reviewed from yesterday with
unremarkable laboratory analysis. Patient also had CT abdominal imaging which showed constipation without additional acute pathology. Do not feel patient warrants repeat imaging or laboratory analysis without concern for worsening condition, given
stable appearance today. Suspect component of constipation, is on chronic narcotics. Patient does have some tenderness along the area of the JG tube, however there is no erythema or redness or signs of infection. No indication for emergent
replacement. Patient is requesting medication for her constipation. Offered enema and mag citrate. She would like to proceed with mag citrate. Otherwise feel stable for discharge with continued outpatient supportive therapy and expectant
management. Return precautions discussed and patient verbalized understanding
*Critical Care Note
Total Time (30-74mins, 75-104mins- exclusive of procedures): Not Applicable
ED Attending Note
-
Portions of this chart may have been created with voice recognition software.� Occasional wrong word or��sound alike� substitutions may have occurred due to the inherent limitations of voice recognition software.
Discharge Plan
Departure
Patient Disposition: Home (Routine Discharge)
Date of Disposition: 09/26/23
Time of Disposition: 17:31
Patient with high blood pressure during this ER visit?: No
Condition: Good
Discharge Problem:
Constipation, Abdominal pain
Instructions: Constipation, Adult ED
Prescriptions:
No Action
medroxyprogesterone 10 mg Tablet
10 mg PO DAILY
acetaminophen [Tylenol] 325 mg Tablet
650 mg PO Q6HPRN PRN (Reason: mild pain)
polyethylene glycol 3350 [Miralax] 17 gram Powder In Packet
17 g PO DAILY
levalbuterol HCl [Xopenex] 0.63 mg/3 mL Solution For Nebulization
0.63 mg INHALATION R Q6HPRN PRN (Reason: sob)
dextromethorphan-guaifenesin [Mulu-Tussin DM] 10-100 mg/5 mL Liquid
10 ml PO Q6HPRN PRN (Reason: cough)
ondansetron HCl [Zofran] 4 mg Tablet
4 mg PO Q6HPRN PRN (Reason: nausea)
clonazepam 0.5 mg Tablet
0.5 mg PO BID
sennosides-docusate sodium [Senokot-S] 8.6-50 mg Tablet
2 tab-cap PO BID
gabapentin 400 mg Capsule
600 mg feeding tube Q6H
loperamide 2 mg Tablet
2 mg PO Q6HPRN PRN (Reason: diarrhea)
guaifenesin [Mucinex Fast-Max Chest-Congest] 100 mg/5 mL Liquid
200 mg PO Q6HPRN PRN (Reason: cough)
diphenhydramine-zinc acetate 2-0.1 % Cream
1 applic TOPICAL TIDPRN PRN (Reason: itching)
magnesium hydroxide [Milk of Magnesia] 400 mg/5 mL Suspension
2,400 mg PO [id number] PRN (Reason: constipation)
benzonatate [Tessalon Perles] 100 mg Capsule
100 mg PO TID
oxybutynin chloride 5 mg/5 mL Syrup
2.5 mg feeding tube TID
bisacodyl [Dulcolax (bisacodyl)] 10 mg Suppository
10 mg SC [id number] PRN (Reason: constipation)
bisacodyl [Dulcolax (bisacodyl)] 10 mg Suppository
10 mg SC DAILYPRN PRN (Reason: if no bm aftr mom)
nystatin 100,000 unit/gram Cream
1 applic TOPICAL BID
Fleet Enema 19-7 gram/118 mL Enema
118 ml SC DAILYPRN PRN (Reason: if no bm aftr dulcolax)
folic acid 1 mg Tablet
1 mg feeding tube DAILY
nystatin 100,000 unit/gram Powder
1 applic TOPICAL TID
fluticasone propionate [Flonase] 50 mcg/actuation [place],Suspension
1 spray INTRANASAL DAILY
lamotrigine 100 mg Tablet
100 mg feeding tube BID
risperidone [Risperdal] 0.5 mg Tablet
0.5 mg feeding tube BID
simethicone [Gas-X] 80 mg Tablet,Chewable
80 mg feeding tube Q6HPRN PRN (Reason: gas pain)
topiramate 50 mg Tablet
150 mg feeding tube BID
duloxetine [Cymbalta] 60 mg Capsule,Delayed Release(Dr/Ec)
90 mg PO DAILY
lactulose 10 gram/15 mL Solution
20 g feeding tube DAILY
drospirenone-ethinyl estradiol 3-0.02 mg Tablet
1 tab feeding tube DAILY
Refresh Optive 0.5-0.9 % Drops
2 drp BOTH EYES BID
diclofenac sodium [Voltaren] 1 % Gel
0 g TOPICAL [id number] PRN (Reason: b/l knee, rt shoulder)
omeprazole 20 mg Tablet,Delayed Release (Dr/Ec)
20 mg PO DAILY
trazodone 50 mg Tablet
50 mg PO HS
fexofenadine 180 mg Tablet
180 mg PO DAILY
Rx Instructions:
at bedtime
nortriptyline 50 mg Capsule
50 mg feeding tube HS
hydromorphone 1 mg/mL Liquid
2 mg PO Q6H PRN (Reason: moderate pain )
hydromorphone 1 mg/mL Liquid
4 mg PO Q8H PRN (Reason: SEVERE PAIN)
metoprolol tartrate 25 mg Tablet
12.5 mg PO BID
pantoprazole [Protonix] 40 mg tablet,delayed release (DR/EC)
40 mg PO DAILY Qty: 30 0RF
sucralfate [Carafate] 1 gram tablet
1 g PO ACHS Qty: 40 0RF
Referrals:
Anthony Wilburn DO [Family Provider] -
Activity Restrictions/Additional Instructions:
You were seen in the emegency department for abdominal pain
You were found to have constipation
Please follow-up closely with your primary care physician.
Return to the emergency department for any worsening of your symptoms, or any development of chest pain, difficulty breathing, abdominal pain with persistent vomiting and inability to tolerate food or liquid by mouth (concern for dehydration),
inaility to pass your stool or gas, weakness, headache or confusion, fever greater than 100.4, or any additional symptoms that are concerning to you.
Thank you for choosing [facility].
Discharge Date and Time
Print Language: [id number]
[2023-09-26 16:00] VITALS: BP 111/67
[2023-09-26] MEDS: TYLENOL ORAL SOLUTION 650 MG PO (16:09)
[2023-09-26 17:00] VITALS: BP 109/62
[2023-09-26 18:00] VITALS: BP 104/66
[2023-09-26] MEDS: CITROMA 150 ML PO (18:07)
== END 2023-09-26 19:13 | disposition home or self-care (01) ==
LOC: EMR 15:19
PROVIDERS: EMERGENCY PHYSICIAN Student in an Organized Health Care Education/Training Program; FAMILY PHYSICIAN Student in an Organized Health Care Education/Training Program
DX: R10.10 Upper abdominal pain, unspecified (principal); K59.00 Constipation, unspecified; K21.9 Gastro-esophageal reflux disease without esophagitis; M79.7 Fibromyalgia
CPT/HCPCS: 99283